=== PATIENT | female | born 1990 | race Two or more races ===

== ENCOUNTER 2020-08-24 10:59 | Emergency (ER) | payer SELFPAY ==
[~2020-08-24] VITALS: Ht 165.1 cm; Wt 59.0 kg
[2020-08-24 11:02] VITALS: BP 112/57
[2020-08-24] MEDS ORDERED: ONDANSETRON 4MG ODT PO STA (11:29)
[2020-08-24] MEDS ORDERED: ACETAMINOPHEN 325MG TABLET PO STA (11:29)
[2020-08-24] MEDS ORDERED: CEPH500C2 MT (22:16)
== END 2020-08-24 13:17 | disposition left against medical advice (07) ==
LOC: ER 13:12
DX: R10.2 Pelvic and perineal pain (principal); M79.18 Myalgia, other site
CPT/HCPCS: 99283; Q0162

== ENCOUNTER 2020-08-24 19:57 | Emergency (ER) | payer SELFPAY ==
[~2020-08-24] VITALS: Ht 162.6 cm; Wt 56.7 kg
[2020-08-24 21:30] LABS: CLARITY URINE CLOUDY (CLEAR); COLOR URINE YELLOW (YELLOW); KETONES URINE NEGATIVE (NEGATIVE); LEUKOCYTE ESTERASE URINE 3+ (NEGATIVE); NITRITE URINE NEGATIVE (NEGATIVE); OCCULT BLOOD URINE TRACE (NEGATIVE); PH URINE 5.5 (4.5-8.0); PROTEIN URINE NEGATIVE (NEGATIVE); SPECIFIC GRAVITY URINE 1.009 (1.005-1.030); UROBILINOGEN URINE 0.2 E.U./dL (0.2-1.0)
[2020-08-24 21:31] LABS: BASOPHILS % 0.5 % (0.0-2.0); EOSINOPHILS % 2.2 % (0.0-5.0); HEMATOCRIT. 35.7 % (36.0-48.0); HEMOGLOBIN. 12.1 g/dL (12.0-16.0); LYMPHOCYTES % 39.7 % (20.0-50.0); MEAN CORPUSCULAR HEMOGLOBIN 28.9 pg (28.0-32.0); MEAN PLATELET VOLUME 7.2 fl (7.4-10.4); MONOCYTES % 8.3 % (2.0-8.0); NEUTROPHILS % 49.3 % (40.0-76.0); PLATELET 334 x1000/uL (130-400); RED CELL DISTRIBUTION WIDTH 13.2 % (11.6-14.6)
[2020-08-24 21:38] LABS: CHLORIDE 108 mEq/L (98-107)
[2020-08-24 21:42] LABS: ETHANOL BLOOD < 10 mg/dL; HCG SCREEN NEGATIVE
[2020-08-24] MEDS ORDERED: LORAZEPAM 0.5MG TABLET PO ONE (22:15)
[2020-08-24] MEDS ORDERED: IBUPROFEN 600MG TABLET PO ONE (22:15)
[2020-08-24] MEDS ORDERED: CEPHALEXIN 250MG CAPSULE PO ONE (22:15)
[2020-08-24] MEDS ORDERED: CEPH500C2 MT (22:16)
[2020-08-24 22:42] VITALS: BP 116/73
[2020-08-24 22:51] LABS: *AMPHETAMINES SCREEN URINE NEGATIVE (NEGATIVE); *BARBITURATES SCREEN URINE NEGATIVE (NEGATIVE); METHADONE URINE SCREEN NEGATIVE (NEGATIVE); OPIATES URINE SCREEN NEGATIVE (NEGATIVE); PHENCYCLIDINE URINE SCREEN NEGATIVE (NEGATIVE)
[2020-08-24 22:52] LABS: *BENZODIAZEPINES SCREEN URINE NEGATIVE (NEGATIVE); *COCAINE SCREEN URINE NEGATIVE (NEGATIVE); CANNABINOID URINE SCREEN PRESUMTIVE POSITIVE (NEGATIVE)
== END 2020-08-24 22:41 | disposition home or self-care (01) ==
LOC: ER 19:57
DX: N39.0 Urinary tract infection, site not specified (principal); I49.9 Cardiac arrhythmia, unspecified
CPT/HCPCS: 36415; 80053; 80305; 80320; 81003; 81025; 82962; 84703; 85025; 87077; 93005; 99284; G0480